=== PATIENT | male | born 1990 | race African-American/Black ===

== ENCOUNTER 2022-01-09 14:36 | Emergency (ER) | payer SELFPAY ==
[~2022-01-09] VITALS: Ht 172.7 cm; Wt 72.0 kg
[2022-01-09 14:43] VITALS: BP 155/101
[2022-01-09] MEDS ORDERED: LIDOCAINE HCL/EPINEPHRINE 1%-EPI 1:100,000 30 ML VIAL INFIL ONE (16:30)
[2022-01-09] MEDS ORDERED: BACITRACIN ZINC OINT UDPKT TOP ONE (16:45)
[2022-01-09] MEDS: LIDOCAINE HCL/EPINEPHRINE 1%-EPI 1:100,000 20 ML VIAL INFIL NR ×2 (17:53→18:17)
[2022-01-09] MEDS ORDERED: CEPH500C2 MT (17:56)
[2022-01-09] MEDS ORDERED: CEFTRIAXONE SODIUM 1 G/VIAL IM ONE (18:00)
[2022-01-09] MEDS ORDERED: TETANUS, DIPHTHERIA, PERTUSSIS VAC/PF 0.5ML (>10YR OLD) IM ONE (18:00)
[2022-01-09] MEDS ORDERED: CEPHALEXIN 250MG CAPSULE PO NR (18:15)
== END 2022-01-09 18:18 | disposition home or self-care (01) ==
LOC: ER 14:36
DX: R51.9 Headache, unspecified (principal)
CPT/HCPCS: 96372; 99283; J0696